=== PATIENT | female | born 1980 | race American Indian/Alaskan Native ===

== ENCOUNTER 2016-08-11 14:37 | Emergency (ER) | payer SELFPAY ==
[2016-08-11 15:00] VITALS: BP 125/87
[2016-08-11] MEDS ORDERED: TORADOL IM ONE (18:07)
--- NOTE | 2016-08-11 18:12 | Emergency Department Report ---
Addendum entered and electronically signed by DOMITILA BISHOP PA 08/11/16 18: 16: LMP 06/25/17 irregular per patient. Positive she is not . Original Note: ED ENT HPI - General Chief complaint: Dental/Oral Stated complaint: TOOTH PAIN Time Seen by Provider: 08/11/16 18:07 Source: patient Mode of arrival: Ambulatory Limitations: No Limitations - History of Present Illness Initial comments: Patient complains of right bottom tooth ache 2 days worsened today. Reports history of bad tooth. Denies fever, chills, nausea, vomiting, sore throat, difficulty swallowing, breathing or SOB, Ear pain. States no relief on OTC Tylenol and oral antiseptic mouth gel. Denies other acute complaints today. LMP - Related Data Home Medications Medication Instructions Recorded Confirmed Last Taken Amoxicillin [Trimox CAP] 09/03/13 09/03/13 Unknown Ibuprofen [Motrin 600 MG tab] 09/03/13 09/03/13 Unknown Previous Rx's Medication Instructions Recorded Last Taken Type predniSONE [Deltasone] 3 tab PO QDAY #9 tab 09/03/13 Unknown Rx Famotidine [Pepcid] 10 mg PO BID #30 tablet 09/11/13 Unknown Rx Acetaminophen/Codeine 1 tab PO Q6H PRN #15 tab 06/15/14 Unknown Rx [Acetaminophen-Codeine #3 TAB] metroNIDAZOLE [Flagyl] 500 mg PO BID #14 tablet 06/15/14 Unknown Rx Acetaminophen [Tylenol] 1,000 mg PO Q8HR #30 tablet 06/02/15 Unknown Rx Vit No.73/Iron/FA 1 each PO DAILY #30 tablet 06/02/15 Unknown Rx [Virt-Eric Tablet] Ibuprofen [Motrin 800 MG tab] 800 mg PO TID PRN #30 tablet 09/27/15 Unknown Rx Ibuprofen [Motrin] 800 mg PO TID PRN #30 tablet 08/11/16 Unknown Rx traMADol [Ultram 50 MG tab] 50 mg PO Q4HR PRN #20 tablet 08/11/16 Unknown Rx Allergies Allergy/AdvReac Type Severity Reaction Status Date / Time No Known Allergies Allergy Verified 12/29/13 17:40 ED Dental HPI - General Chief complaint: Dental/Oral Stated complaint: TOOTH PAIN Time Seen by Provider: 08/11/16 18:07 Source: patient Mode of arrival: Ambulatory Limitations: No Limitations - Related Data Home Medications Medication Instructions Recorded Confirmed Last Taken Amoxicillin [Trimox CAP] 09/03/13 09/03/13 Unknown Ibuprofen [Motrin 600 MG tab] 09/03/13 09/03/13 Unknown Previous Rx's Medication Instructions Recorded Last Taken Type predniSONE [Deltasone] 3 tab PO QDAY #9 tab 09/03/13 Unknown Rx Famotidine [Pepcid] 10 mg PO BID #30 tablet 09/11/13 Unknown Rx Acetaminophen/Codeine 1 tab PO Q6H PRN #15 tab 06/15/14 Unknown Rx [Acetaminophen-Codeine #3 TAB] metroNIDAZOLE [Flagyl] 500 mg PO BID #14 tablet 06/15/14 Unknown Rx Acetaminophen [Tylenol] 1,000 mg PO Q8HR #30 tablet 06/02/15 Unknown Rx Vit No.73/Iron/FA 1 each PO DAILY #30 tablet 06/02/15 Unknown Rx [Virt-Eric Tablet] Ibuprofen [Motrin 800 MG tab] 800 mg PO TID PRN #30 tablet 09/27/15 Unknown Rx Ibuprofen [Motrin] 800 mg PO TID PRN #30 tablet 08/11/16 Unknown Rx traMADol [Ultram 50 MG tab] 50 mg PO Q4HR PRN #20 tablet 08/11/16 Unknown Rx Allergies Allergy/AdvReac Type Severity Reaction Status Date / Time No Known Allergies Allergy Verified 12/29/13 17:40 ED Review of Systems ROS: Stated complaint: TOOTH PAIN Other details as noted in HPI Comment: All other systems reviewed and negative ED Past Medical Hx - Past Medical History Hx Hypertension: No Hx Congestive Heart Failure: No Hx Diabetes: No Hx Deep Vein Thrombosis: No Hx Renal Disease: No Hx Sickle Cell Disease: No Hx Seizures: No Hx Asthma: No Hx COPD: No Hx HIV: No - Surgical History Additional Surgical History: C-sections X 1 - Social History Smoking Status: Current Every Day Smoker Substance Use Type: Alcohol - Medications Home Medications: Home Medications Medication Instructions Recorded Confirmed Last Taken Type Amoxicillin [Trimox CAP] 09/03/13 09/03/13 Unknown History Ibuprofen [Motrin 600 MG tab] 09/03/13 09/03/13 Unknown History predniSONE [Deltasone] 3 tab PO QDAY #9 tab 09/03/13 Unknown Rx Famotidine [Pepcid] 10 mg PO BID #30 tablet 09/11/13 Unknown Rx Acetaminophen/Codeine 1 tab PO Q6H PRN #15 tab 06/15/14 Unknown Rx [Acetaminophen-Codeine #3 TAB] metroNIDAZOLE [Flagyl] 500 mg PO BID #14 tablet 06/15/14 Unknown Rx Acetaminophen [Tylenol] 1,000 mg PO Q8HR #30 tablet 06/02/15 Unknown Rx Vit No.73/Iron/FA 1 each PO DAILY #30 tablet 06/02/15 Unknown Rx [Virt-Eric Tablet] Ibuprofen [Motrin 800 MG tab] 800 mg PO TID PRN #30 tablet 09/27/15 Unknown Rx Ibuprofen [Motrin] 800 mg PO TID PRN #30 tablet 08/11/16 Unknown Rx traMADol [Ultram 50 MG tab] 50 mg PO Q4HR PRN #20 tablet 08/11/16 Unknown Rx ED Physical Exam - General Limitations: No Limitations General appearance: alert, in no apparent distress, other (in moderate pain discomfort.) - Head Head exam: Present: atraumatic, normocephalic - Eye Eye exam: Present: normal appearance, PERRL, EOMI. Absent: scleral icterus, conjunctival injection, periorbital swelling, periorbital tenderness - ENT ENT exam: Present: mucous membranes moist, TM's normal bilaterally, normal external ear exam, other (Caries of bottom right wisdom tooth. + tenderness. No surrounding gigival edema, erythema, abscess.) - Neck Neck exam: Present: normal inspection, full ROM, lymphadenopathy (r cervical.). Absent: tenderness, meningismus - Respiratory Respiratory exam: Present: normal lung sounds bilaterally. Absent: respiratory distress, wheezes, rales, rhonchi, stridor - Cardiovascular Cardiovascular Exam: Present: regular rate, normal rhythm - GI/Abdominal GI/Abdominal exam: Present: soft, distended - Extremities Exam Extremities exam: Present: normal inspection, full ROM - Back Exam Back exam: Present: normal inspection, full ROM - Neurological Exam Neurological exam: Present: alert, oriented X3, normal gait, reflexes normal. Absent: motor sensory deficit - Psychiatric Psychiatric exam: Present: normal affect, normal mood - Skin Skin exam: Present: warm, dry, intact, normal color. Absent: rash ED Course Vital Signs 08/11/16 14:58 Temperature 98.5 F Pulse Rate 73 Respiratory 18 Rate Blood Pressure 125/87 O2 Sat by Pulse 100 Oximetry Critical care attestation.: If time is entered above; I have spent that time in minutes in the direct care of this critically ill patient, excluding procedure time. ED Disposition Clinical Impression: Toothache, Dental caries Disposition: DISCHARGED TO HOME OR SELFCARE Is pt being admited?: No Does the pt Need Aspirin: No Condition: Stable Instructions: Toothache (ED), Dental Caries (ED) Referrals: PRIMARY CARE, [Primary Care Provider] - 2-3 Days [facility] [Outside] - [place]
== END 2016-08-11 18:19 | disposition home or self-care (01) ==
LOC: ED 14:37
DX: K02.9 Dental caries, unspecified (principal); K08.89 Other specified disorders of teeth and supporting structures; F17.200 Nicotine dependence, unspecified, uncomplicated
CPT/HCPCS: 96372; 99282; J1885